=== PATIENT | male | born 1980 | race Caucasian/White ===

== ENCOUNTER 2016-03-07 15:18 | Emergency (ER) | payer OTHER ==
--- NOTE | 2016-03-07 15:51 | ED NURSING NOTES ---
Clinical Report - Nurses [facility] [address] [place] [address] 03/07/2016 15:20 Patient: MARIE ERICKSON JR TRIAGE Triage time 15:33. Acuity: LEVEL 3. Chief Complaint: (hypertension, sent by the In [facility] 2 days in the ED. Had CT, EKG, lab work done. Saw the dr just prior to now and metoprolol doubled to 200mg day, only took 100mg today.). Alert. No acute distress. SEPSIS SCREEN: Sepsis Screen: negative. Negative (no infection suspected/documented). LEILA COMA SCORE: [place] Coma Scale: 15- eyes open spontaneously (4); best verbal response- oriented x 4 (5); best motor response- obeys commands (6). --15:42 Poly Leslie R.N. 15:33 03/07/16. BP: 154/101. HR: 83. RR: 20. O2 saturation: 96% on room air. Temp: 98.2 F. Pain level now: 02/18. --15:42 Poly Leslie R.N. Weight: 88.9 kg stated. Height/Length: 71 inches Per Patient. BMI: 27.3. --15:40 Poly Leslie R.N. Medications Metoprolol Tartrate Oral 200mg, day. --15:37 Poly Leslie R.N. Omeprazole Oral 20 mg, daily. --15:37 Poly Leslie R.N. Candesartan Cilexetil-HCTZ Oral (Tablet 32-25 mg) 1 tablet, day. --15:38 Poly Leslie R.N. MetFORMIN HCl Oral 500 mg, occasionally . --15:38 Poly Leslie R.N. Ibuprofen Oral 600 mg, daily. --15:38 Poly Leslie R.N. Medication/allergy information source: the patient. --15:42 Poly Leslie R.N. Allergies Penicillin. --15:36 Poly Leslie R.N. History Arrived by private vehicle. Historian: patient. Primary physician ([facility]). Onset. (years.). He has had a cough and difficulty breathing. No fever or weakness. Denies muscle aches. 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 PAST MEDICAL HX: Immunizations: status is unknown. SOCIAL HX: Light tobacco smoker (cigarette)- less than 1/2 a pack per day. No alcohol use or drug use. No infectious disease exposure. FALL RISK ASSESSMENT: Fall risk assessment completed. No fall risk identified. NUTRITIONAL RISK ASSESSMENT: The nutritional risk assessment revealed no deficiencies. FUNCTIONAL ASSESSMENT: Functional assessment: no impairments noted. LEARNING NEEDS ASSESSMENT: The learning needs assessment revealed no barriers. SKIN INTEGRITY ASSESSMENT: Skin integrity risk assessment completed. No skin integrity risk identified. --15:42 Poly Leslie R.N. PROBLEMS: Reflux. Abdominal Muscle Strain. Abdominal Pain. Hypertension. Diabetes Mellitus. --15:39 Ploy Leslie R.N. ADDITIONAL SURGERIES: Cholecystectomy. Tonsillectomy. --15:39 Poly Leslie R.N. Interventions ID band on patient. To room. --15:42 Poly Leslie R.N. PHYSICAL ASSESSMENT Ambulatory to room. Patient gowned. GENERAL / NEURO / PSYCH: Alert. Oriented X 4. Appears in pain. HEENT: Mucous membranes are pink. RESPIRATORY: Respirations not labored. CVS: Capillary refill less than 2 seconds. GI / : Abdomen nontender. SKIN: Skin intact. Skin is warm and dry. Normal skin turgor. --15:42 Poly Leslie R.N. NURSING PROGRESS NOTES Patient gowned. Head of bed elevated. Two patient identifiers checked. Call light placed in reach. Side rails up x 2. Bed placed in lowest position. Brakes of bed on. Patient ready for evaluation. --15:43 Poly Leslie R.N. 15:43 03/07/16. BP: 147/96. HR: 87. RR: 20. O2 saturation: 100% on room air. --15:43 Poly Leslie R.N. DISPOSITION / DISCHARGE Condition at departure: improved. No learning barriers present. Discharge instructions provided and reviewed with the patient. Patient verbalized understanding. Written instructions provided in Sinhala. The patient was discharged home. He left the Emergency Department ambulatory and via private vehicle. Patient driving. Medication list reviewed and validated. --16:00 Poly Leslie R.N. 15:59 03/07/16. BP: 138/99. HR: 87. RR: 20. O2 saturation: 98%. Temp: deferred. Pain level now: 02/18. 15:43 03/07/16. BP: 147/96. HR: 87. RR: 20. O2 saturation: 100% on room air. 15:33 03/07/16. BP: 154/101. HR: 83. RR: 20. O2 saturation: 96% on room air. Temp: 98.2 F. Pain level now: 02/18. --16:00 Poly Leslie R.N. Locked/Released at 03/07/2016 16:01 by Poly Leslie R.N.
--- NOTE | 2016-03-07 15:51 | ED CLINICAL REPORT ---
Clinical Report - Physicians/Mid Levels [facility] [address] [place] [address] 03/07/2016 15:20 Patient: MARIE ERICKSON JR Time Seen: 15:38; upon arrival, initial patient contact, initial documentation, patient care assumed. Arrived- By private vehicle. Historian- patient. HISTORY OF PRESENT ILLNESS Chief Complaint: BLOOD PRESSURE ELEVATED. Checked by nurse at physician's office diastolic 120. This started about 1 weeks ago and is still present but is improving. No current or associated symptoms. Similar symptoms previously: None. Recent medical care: The patient was seen recently at another facility in the emergency department and office. ( went to another er x2 days ago, went to dr isidro for bp meds, been out of hctz for about x1 wk, bp elevated, was given some pill for it, but 30min later still elevated so sent here). REVIEW OF SYSTEMS No fever, sinus drainage, nasal congestion, difficulty breathing or chest pain. No abdominal pain, vomiting, diarrhea or headache. All systems otherwise negative, except as recorded above. PAST HISTORY See nurses notes. PROBLEMS: Reflux. Abdominal Muscle Strain. Abdominal Pain. Hypertension. Diabetes Mellitus. --15:39 Poly Leslie R.N. ADDITIONAL SURGERIES: Cholecystectomy. Tonsillectomy. --15:39 Poly Leslie R.N. SOCIAL HISTORY Light tobacco smoker. No alcohol use or drug use. No recent travel. Is a local resident. FAMILY HISTORY Negative. ADDITIONAL NOTES The nursing notes have been reviewed with agreement regarding the chief complaint, HPI, ROS, PMH and patient medications and allergies. PHYSICAL EXAM Vital Signs: 03/07/2016 15:43 BP: 147/96. HR: 87. RR: 20. O2 saturation: 100%. Have been reviewed as abnormal and appear to be correct. Hypertensive. Heart rate normal. Respiratory rate normal. Temperature normal. Oxygen saturation normal. Appearance: Alert. No acute distress. Eyes: Pupils equal, round and reactive to light. Eyes normal inspection. Neck: Normal inspection. Neck supple. CVS: Normal heart rate and rhythm. Heart sounds normal. Pulses normal. Respiratory: No respiratory distress. Breath sounds normal. Chest nontender. Abdomen: Moderately obese. Back: Normal inspection. Skin: Skin warm and dry. Normal skin color. No rash. Normal skin turgor. Extremities: Extremities exhibit normal ROM. No lower extremity edema. Neuro: Oriented X 3. No motor deficit. No sensory deficit. PROGRESS AND PROCEDURES Patient counseled in person regarding the patient's stable condition and diagnosis. 15:50. Differential Diagnosis: Other possible considerations: htn crisis, icb, sah, tumor, noncompliance. Above considerations are based on history and physical exam. Differential diagnosis was discussed with patient. Disposition: Discharged home in good and improved condition (15:50). Condition: good and stable. CLINICAL IMPRESSION Uncontrolled hypertension. INSTRUCTIONS (get blood pressure meds, and other medications filled and take as directed and discussed). Warnings: GENERAL WARNINGS: Return or contact your physician immediately if your condition worsens or changes unexpectedly, if not improving as expected, or if other problems arise. Specifically return if problem worsens. Follow-up: Follow up with your doctor in about five days even if well. Call for an appointment. Summary of care provided to patient. Screening today revealed the patient's blood pressure to be in the hypertensive range. The patient should follow up with a primary care provider for blood pressure management. Understanding of the discharge instructions verbalized by patient. (Electronically signed by Gemini Gamez A.R.N.P. 03/07/2016 16:23)
--- NOTE | 2016-03-07 15:51 | ED NURSING NOTES ---
Clinical Report - Nurses [facility] [address] [place] [address] 03/07/2016 15:20 Patient: MARIE ERICKSON JR TRIAGE Triage time 15:33. Acuity: LEVEL 3. Chief Complaint: (hypertension, sent by the In [facility] 2 days in the ED. Had CT, EKG, lab work done. Saw the dr just prior to now and metoprolol doubled to 200mg day, only took 100mg today.). Alert. No acute distress. SEPSIS SCREEN: Sepsis Screen: negative. Negative (no infection suspected/documented). LEILA COMA SCORE: [place] Coma Scale: 15- eyes open spontaneously (4); best verbal response- oriented x 4 (5); best motor response- obeys commands (6). --15:42 Poly Leslie R.N. 15:33 03/07/16. BP: 154/101. HR: 83. RR: 20. O2 saturation: 96% on room air. Temp: 98.2 F. Pain level now: 02/18. --15:42 Poly Leslie R.N. Weight: 88.9 kg stated. Height/Length: 71 inches Per Patient. BMI: 27.3. --15:40 Poly Leslie R.N. Medications Metoprolol Tartrate Oral 200mg, day. --15:37 Poly Leslie R.N. Omeprazole Oral 20 mg, daily. --15:37 Poly Leslie R.N. Candesartan Cilexetil-HCTZ Oral (Tablet 32-25 mg) 1 tablet, day. --15:38 Poly Leslie R.N. MetFORMIN HCl Oral 500 mg, occasionally . --15:38 Poly Leslie R.N. Ibuprofen Oral 600 mg, daily. --15:38 Poly Leslie R.N. Medication/allergy information source: the patient. --15:42 Poly Leslie R.N. Allergies Penicillin. --15:36 Poly Leslie R.N. History Arrived by private vehicle. Historian: patient. Primary physician ([facility]). Onset. (years.). He has had a cough and difficulty breathing. No fever or weakness. Denies muscle aches. 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 PAST MEDICAL HX: Immunizations: status is unknown. SOCIAL HX: Light tobacco smoker (cigarette)- less than 1/2 a pack per day. No alcohol use or drug use. No infectious disease exposure. FALL RISK ASSESSMENT: Fall risk assessment completed. No fall risk identified. NUTRITIONAL RISK ASSESSMENT: The nutritional risk assessment revealed no deficiencies. FUNCTIONAL ASSESSMENT: Functional assessment: no impairments noted. LEARNING NEEDS ASSESSMENT: The learning needs assessment revealed no barriers. SKIN INTEGRITY ASSESSMENT: Skin integrity risk assessment completed. No skin integrity risk identified. --15:42 Poly Leslie R.N. PROBLEMS: Reflux. Abdominal Muscle Strain. Abdominal Pain. Hypertension. Diabetes Mellitus. --15:39 Poly Leslie R.N. ADDITIONAL SURGERIES: Cholecystectomy. Tonsillectomy. --15:39 Poly Leslie R.N. Interventions ID band on patient. To room. --15:42 Poly Leslie R.N. PHYSICAL ASSESSMENT Ambulatory to room. Patient gowned. GENERAL / NEURO / PSYCH: Alert. Oriented X 4. Appears in pain. HEENT: Mucous membranes are pink. RESPIRATORY: Respirations not labored. CVS: Capillary refill less than 2 seconds. GI / : Abdomen nontender. SKIN: Skin intact. Skin is warm and dry. Normal skin turgor. --15:42 Poly Leslie R.N. NURSING PROGRESS NOTES Patient gowned. Head of bed elevated. Two patient identifiers checked. Call light placed in reach. Side rails up x 2. Bed placed in lowest position. Brakes of bed on. Patient ready for evaluation. --15:43 Poly Leslie R.N. 15:43 03/07/16. BP: 147/96. HR: 87. RR: 20. O2 saturation: 100% on room air. --15:43 Poly Leslie R.N. DISPOSITION / DISCHARGE Condition at departure: improved. No learning barriers present. Discharge instructions provided and reviewed with the patient. Patient verbalized understanding. Written instructions provided in Amharic. The patient was discharged home. He left the Emergency Department ambulatory and via private vehicle. Patient driving. Medication list reviewed and validated. --16:00 Poly Leslie R.N. 15:59 03/07/16. BP: 138/99. HR: 87. RR: 20. O2 saturation: 98%. Temp: deferred. Pain level now: 02/18. 15:43 03/07/16. BP: 147/96. HR: 87. RR: 20. O2 saturation: 100% on room air. 15:33 03/07/16. BP: 154/101. HR: 83. RR: 20. O2 saturation: 96% on room air. Temp: 98.2 F. Pain level now: 02/18. --16:00 Poly Leslie R.N. Locked/Released at 03/07/2016 16:01 by Poly Leslie R.N.
--- NOTE | 2016-03-07 16:24 | ED MED RECONCILIATION SUMMARY ---
Patient: DRE MARIE TRAN Medication Reconciliation Report [facility] VisitID: [id number] [address] [place] [address] 35y, M Registration Date/Time: 03/07/2016 Weight: 88.9 kg Height/Length: 71 in. BMI: 27.3 ALLERGIES: Penicillin The patient's Home Medications are listed below: THE FOLLOWING MEDICATIONS NEED TO BE RECONCILED: Candesartan Cilexetil-HCTZ Oral (32-25 mg) 1 tablet, day Ibuprofen Oral 600 mg, daily MetFORMIN HCl Oral 500 mg, occasionally Metoprolol Tartrate Oral 200mg, day Omeprazole Oral 20 mg, daily The source(s) of the original Home Medication information: patient The following Medications were given to the patient in the Emergency Department: None. The following Medications were prescribed to the patient: None.
--- NOTE | 2016-03-07 16:24 | ED MAR SUMMARY ---
..... Medication Administration Record [facility] [address], [place] [id number] Patient: MARIE ERICKSON Visit ID: [id number] 35y, M Weight: 88.9 kg Height/Length: 71 in BMI: 27.3 ALLERGIES: Penicillin
--- NOTE | 2016-03-07 16:24 | ED DISCHARGE INSTRUCTIONS ---
Patient: MARIE ERICKSON JR General Instructions [facility] VisitID: [id number] [place] [address] 35y, M Registration Date/Time: 03/07/2016 Uncontrolled hypertension. INSTRUCTIONS (get blood pressure meds, and other medications filled and take as directed and discussed). Warnings: GENERAL WARNINGS: Return or contact your physician immediately if your condition worsens or changes unexpectedly, if not improving as expected, or if other problems arise. Specifically return if problem worsens. Follow-up: Follow up with your doctor in about five days even if well. Call for an appointment. Summary of care provided to patient. Screening today revealed the patient's blood pressure to be in the hypertensive range. The patient should follow up with a primary care provider for blood pressure management. Understanding of the discharge instructions verbalized by patient. ADDITIONAL INFORMATION High Blood Pressure --Established High Blood Pressure (Hypertension) is a chronic disease. The cause is unknown in most cases. It can usually be controlled with lifestyle changes and/or medicines. Symptoms of high blood pressure may include headache, dizziness, visual changes, chest pain and shortness of breath. Sometimes it causes no symptoms at all. However, even if there are no symptoms, untreated high blood pressure increases the risk of heart attack, also known as acute myocardial infarction, or AMI, and stroke. It is a serious health risk and should not be ignored. A normal blood pressure is 120/80 or less. The first (top) number is the "systolic" pressure. The second (bottom) number is the "diastolic" pressure. Hypertension exists when either the top number is 140 or higher, OR the bottom number is 90 or higher on repeated measurements. Home Care: All patients with high blood pressure should do the following to lower their pressure. If you are on medicines, then these methods may reduce or eliminate your need for medicines in the future. Begin a weight loss program if you are overweight. Reduce your salt intake. Avoid high salt foods (olives, pickles, smoked meats, salted potato chips, etc.). Do not add salt to your food at the table. Use only small amounts of salt when cooking. Begin an exercise program. Discuss with your doctor what type of exercise program would be best for you. It doesn't have to be difficult. Even brisk walking for 20 minutes three times a week is a good form of exercise. Avoid medicines which contain heart stimulants. This includes many cold and sinus decongestant pills and sprays as well as diet pills. Check the warnings about hypertension on the label. Stimulants such as amphetamine or cocaine could be lethal for someone with hypertension. Never take these. Limit your caffeine intake or switch to caffeine-free products. Stop smoking. If you are a long-time smoker, this can be hard. Enroll in a stop-smoking program to improve your chance of success. Learning how to handle stress better is an important part of any program to lower blood pressure. Learn about relaxation methods such as meditation, yoga or biofeedback. If medicines were prescribed, take them exactly as directed. Missing doses may cause your blood pressure get out of control. Consider buying an automatic blood pressure machine (available at most pharmacies). Use this to monitor your blood pressure at home and report the results to your doctor. Follow Up: Regular visits to your own physician for blood pressure checks and medicine adjustment is an important part of your care. Make a follow-up appointment as directed by our staff. Get Prompt Medical Attention if any of the following occur: Chest pain or shortness of breath Severe headache Throbbing or rushing sound in the ears Nosebleed Sudden severe abdominal pain Extreme drowsiness, confusion or fainting Dizziness or vertigo (dizziness with spinning sensation) Weakness of an arm or leg or one side of the face Difficulty with speech or vision You have been given the following additional information: Hypertension, Established (Electronically signed by Gemini Gamez A.R.N.P. 03/07/2016 16:23)
--- NOTE | 2016-03-07 16:24 | ED MAR SUMMARY ---
..... Medication Administration Record [facility] [address] [place], [place] [id number] Patient: MARIE ERICKSON Visit ID: [id number] 35y, M Weight: 88.9 kg Height/Length: 71 in BMI: 27.3 ALLERGIES: Penicillin
--- NOTE | 2016-03-07 16:24 | ED MED RECONCILIATION SUMMARY ---
Patient: DRE MARIE TRAN Medication Reconciliation Report [facility] VisitID: [id number] [address] [place] [address] 35y, M Registration Date/Time: 03/07/2016 Weight: 88.9 kg Height/Length: 71 in. BMI: 27.3 ALLERGIES: Penicillin The patient's Home Medications are listed below: THE FOLLOWING MEDICATIONS NEED TO BE RECONCILED: Candesartan Cilexetil-HCTZ Oral (32-25 mg) 1 tablet, day Ibuprofen Oral 600 mg, daily MetFORMIN HCl Oral 500 mg, occasionally Metoprolol Tartrate Oral 200mg, day Omeprazole Oral 20 mg, daily The source(s) of the original Home Medication information: patient The following Medications were given to the patient in the Emergency Department: None. The following Medications were prescribed to the patient: None.
== END 2016-03-07 16:00 | disposition home or self-care (01) ==
LOC: ED SRH 15:18
DX: I10 Essential (primary) hypertension (principal); E11.9 Type 2 diabetes mellitus without complications; K21.9 Gastro-esophageal reflux disease without esophagitis; F17.210 Nicotine dependence, cigarettes, uncomplicated; Z79.84 Long term (current) use of oral hypoglycemic drugs; Z88.0 Allergy status to penicillin; Z79.899 Other long term (current) drug therapy

== ENCOUNTER 2016-08-22 16:05 | Emergency (ER) | payer OTHER ==
--- NOTE | 2016-08-22 16:41 | DIAGNOSTIC IMAGING REPORT ---
PROCEDURE: XR CHEST 1 VIEW INDICATION: CHEST PAIN TECHNIQUE: Single view chest. 1627 hours COMPARISON: None FINDINGS: Low lung volumes. Normal cardiomediastinal contour and central vessels. Mild bibasilar atelectatic changes, right greater than left. The upper lung zones are clear. No significant effusion or pneumothorax. Intact osseous structures. IMPRESSION: 1. Mild bibasilar atelectatic changes, likely secondary to low lung volumes.
--- NOTE | 2016-08-22 18:46 | ED NURSING NOTES ---
Clinical Report - Nurs[facility] [address] [place] [address] 08/22/2016 16:07 Patient: MARIE ERICKSON JR TRIAGE Triage time 16:Aug 22 2016. Acuity: LEVEL 3. Chief Complaint: CHEST PAIN. Alert. No acute distress. LEILA COMA SCORE: [place] Coma Scale: 15- eyes open spontaneously (4); best verbal response- oriented x 4 (5); best motor response- obeys commands (6). --16:16 Sarah Baig R.N. 16:09 08/22/16. BP: 151/98. HR: 85. RR: 20. O2 saturation: 94%. Temp: 98.7 F. Pain level now: 07/19. --16:16 Sarah Baig R.N. Weight: 129.2 kg stated. Height/Length: 71 inches Per Patient. BMI: 39.7. --16:14 Sarah Baig R.N. Medications Metoprolol Tartrate Oral 200mg, day. --16:10 Sarah Baig R.N. Losartan Potassium Oral. --16:10 Sarah Baig R.N. AmLODIPine Besylate Oral. --16:10 Sarah Baig R.N. INCRUSE INHALER. --16:15 Sarah Baig R.N. Allergies Steriods. --16:11 Sarah Baig R.N. Penicillins. --16:11 Sarah Baig R.N. History Arrived by private vehicle. Historian: patient. Onset. (several weeks). He has had difficulty breathing, nausea, vomiting and a cough. Reports experiencing sweating episodes. 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 PAST MEDICAL HX: Immunizations: status is unknown. SOCIAL HX: Current every day heavy tobacco smoker (cigarette)- less than 1 pack per day. History of drug use: marijuana. Recently used drugs days ago. No alcohol use. No infectious disease exposure. SELF HARM ASSESSMENT: A self harm assessment was performed. The patient answered "no" to the question "Do you have thoughts of harming or killing yourself?" and "Have you recently had thoughts about harming or killing others?". FALL RISK ASSESSMENT: Fall risk assessment completed. No fall risk identified. NUTRITIONAL RISK ASSESSMENT: The nutritional risk assessment revealed no deficiencies. FUNCTIONAL ASSESSMENT: Functional assessment: no impairments noted. LEARNING NEEDS ASSESSMENT: The learning needs assessment revealed no barriers. ABUSE ASSESSMENT: Abuse assessment: (HOMELESS). SKIN INTEGRITY ASSESSMENT: Skin integrity risk assessment completed. No skin integrity risk identified. --16:16 Sarah Baig R.N. PROBLEMS: Hypercholesterolemia. CARDIOVASCULAR DISEASE. LIVER DISEASE. Reflux. Abdominal Muscle Strain. Abdominal Pain. Hypertension. Diabetes Mellitus. --16:12 Sarah Baig R.N. COPD - Chronic Obstructive Pulmonary Disease. Asthma. --16:16 Sarah Baig R.N. ADDITIONAL SURGERIES: Cholecystectomy. Tonsillectomy. --16:12 Sarah Baig R.N. Interventions ID band on patient. To room. --16:16 Sarah Baig R.N. PHYSICAL ASSESSMENT Ambulatory to room. GENERAL / NEURO / PSYCH: Alert. Oriented X 4. Appears in no acute distress. RESPIRATORY: Respirations not labored. Decreased breath sounds in the bases bilaterally. CVS: Heart sounds within normal limits. Capillary refill less than 2 seconds. GI / : Abdomen soft and nontender. Abdominal tenderness diffusely. EXTREMITIES: No lower extremity edema. SKIN: Skin is warm and dry. --16:19 Sarah Baig R.N. NURSING PROGRESS NOTES 16:16 08/22/2016 Site #1 started via IV in the right hand with an 18g angiocath, with aseptic technique and good blood return; one attempt. Blood drawn: rainbow set. Labeled in the presence of the patient and sent to the lab. Saline lock flushed with 10 mL saline. --16:16 Sarah Baig R.N. block inspector, pulse oximeter and NIBP monitor placed on patient; cardiac cath lab radiology technologist- Lead II; monitor alarms on. Patient gowned. Head of bed elevated. Patient identifiers checked. Call light placed in reach. Side rails up x 1. Bed placed in lowest position. Brakes of bed on. --16:17 Sarah Baig R.N. 16:25 08/22/2016 Aspirin PO Tablets 324 mg given. Allergies verified and confirmed 5 rights. --16:25 Sarah Baig R.N. The patient is calm and resting quietly. Overall patient status- he states feels the same. --16:38 Sarah Baig R.N. 16:36 08/22/16. BP: 149/98. HR: 94. RR: 20. O2 saturation: 97%. Pain level now: 05/19. --16:38 Sarah Baig R.N. 16:12. EKG was performed by a tech and shown to the ED physician. --17:04 Liliana Barboza, ER Tech1 16:48. Checked patient name and birthdate urine collected; sample sent to lab. Specimen labeled in the presence of the patient. --17:03 Liliana Barboza ER Tech1 17:35 08/22/16. BP: 136/82. HR: 87. RR: 16. O2 saturation: 97% on nasal cannula at 2 liters/minute. --17:37 Poly Leslie R.N. The patient is calm and resting quietly. Overall patient status is the same- he states feels the same. --18:04 Sarah Baig R.N. 18:03 08/22/16. BP: 136/85. HR: 86. RR: 14. O2 saturation: 98%. Pain level now: 05/19. --18:04 Sarah Baig R.N. ( ice water provided to patient). --18:30 Sarah Baig R.N. DISPOSITION / DISCHARGE Departure time: 19:12 Aug 22 2016. Condition at departure: unchanged. No learning barriers present. Discharge instructions provided and reviewed with the patient. Reviewed referral to a casing cooker for followup. Patient verbalized understanding. Written instructions provided in Palestinian. The patient was discharged home. He left the Emergency Department ambulatory and via private vehicle. Patient driving. FALL RISK ASSESSMENT: Fall risk assessment completed. No fall risk identified. --19:12 Sarah Baig R.N. 19:11 08/22/16. BP: 139/85. HR: 90. RR: 19. O2 saturation: 97%. Pain level now: 05/19. --19:12 Sarah Baig R.N. Locked/Released at 08/22/2016 22:21 by Sarah Baig R.N.
--- NOTE | 2016-08-22 18:46 | ED CLINICAL REPORT ---
Clinical Report - Physicians/Mid Levels [facility] [address] [place] [address] 08/22/2016 16:07 Patient: MARIE ERICKSON JR Time Seen: 16:14. Arrived- By private vehicle. Historian- patient. HISTORY OF PRESENT ILLNESS Chief Complaint: CHEST PAIN. At its maximum, severity described as 7 / 10. When seen in the E.D., severity described as 4 / 10. Modifying factors- worsened by movement. It is described as sharp and it is described as located in the central chest area and radiating to the right shoulder. This started several weeks ago and is still present. It was gradual in onset and has been intermittent and waxing/waning. Onset during rest. The patient has had nausea and has experienced diaphoresis. No vomiting. He has had mild difficulty breathing (chronically - he attributes this to smoking). REVIEW OF SYSTEMS The patient has had chills. No fever, calf pain or pedal edema. He has had a mild cough productive of scant amounts of sputum. He has had intermittent palpitations (chronically). The palpitations have lasted only minutes. The palpitations feel like skipped beats. It has been similar to previous symptoms. he reports chronic upper and lower extremity "pins and needles" sensation. All systems otherwise negative, except as recorded above. 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 Problems: Syncope. Asthma. COPD - Chronic Obstructive Pulmonary Disease. Hypercholesterolemia. CARDIOVASCULAR DISEASE. LIVER DISEASE. Reflux. Abdominal Muscle Strain. Abdominal Pain. Hypertension. Diabetes Mellitus. Additional Surgeries: Cholecystectomy. Tonsillectomy. Medications: INCRUSE INHALER. AmLODIPine Besylate Oral. Losartan Potassium Oral. Metoprolol Tartrate Oral 200mg, day. Allergies: Penicillins. Steriods. SOCIAL HISTORY Current every day light tobacco smoker- less than 1/2 a pack per day. History of occasional drug use: marijuana. No alcohol use. Residence: [place] he is homeless. FAMILY HISTORY Premature onset heart disease in first-degree relative (mother and father); stroke in first-degree relative (mother). ADDITIONAL NOTES The nursing notes have been reviewed. PHYSICAL EXAM Vital Signs: 08/22/2016 16:09 BP: 151/98. HR: 85. RR: 20. O2 saturation: 94%. Temp: 98.7 F. Pain level now: 6/10. Have been reviewed. Appearance: Alert. Eyes: Pupils equal, round and reactive to light. ENT: Pharynx normal. Neck: Normal inspection. Neck supple. CVS: Normal heart rate and rhythm. Heart sounds normal. Respiratory: No respiratory distress. Breath sounds normal. Abdomen: Soft and nontender. Bowel sounds normal. No organomegaly. No mass. Obese. Back: Normal external inspection. No CVA tenderness. Skin: Skin warm and dry. Normal skin color. Normal skin turgor. Extremities: Extremities exhibit normal ROM. No calf tenderness. No lower extremity edema. LABS, X-RAYS, AND EKG EKG: Normal EKG. Normal sinus rhythm. Rate: 90. Prior EKG unavailable. The study has been independently viewed by me. Chest X-ray: (IMPRESSION: 1. Mild bibasilar atelectatic changes, likely secondary to low lung volumes.). The X-rays were interpreted by the radiologist and contemporaneously by me. Laboratory Tests: UA-Culture if indicated: (YOLANDA: 08/22/2016 16:49) ( MsgRcvd 08/22/2016 17:25) Final results Test Result Flag Units (Reference) URINE COLOR YELLOW URINE APPEARANCE CLEAR URINE GLUCOSE 3+ (NEGATIVE) URINE BILIRUBIN NEGATIVE (NEGATIVE) URINE KETONE NEGATIVE (NEGATIVE) URINE SPECIFIC GRAVITY 1.025 (1.010-1.030) URINE PH 6.0 (5.0-8.0) URINE PROTEIN NEGATIVE (NEGATIVE) URINE UROBILINOGEN 0.2 EU/dL (0.2-1.0) URINE NITRITE NEGATIVE (NEGATIVE) URINE BLOOD NEGATIVE (NEGATIVE) URINE LEUK ESTERASE NEGATIVE (NEGATIVE) URINE RBC NONE SEEN rbc/hpf (0-1) URINE WBC RARE wbc/hpf (0-1) URINE EPITHELIAL CELLS RARE EPI/hpf (0-5) URINE BACTERIA NONE SEEN (NONE SEEN) URINE COMMENT CULT NOT INDICATED URINE CULTURES ARE SET-UP BASED ON THE FOLLOWING CRITERIA:POSITIVE NITRITEPOSITIVE LEUKOCYTE ESTERASEGREATER THAN 10 WHITE BLOOD CELLSMODERATE (2+) OR GREATER BACTERIA CBC w Diff: (YOLANDA: 08/22/2016 16:15) ( [facility] 08/22/2016 16:27) Final results Test Result Flag Units (Reference) WHITE BLOOD COUNT 9.6 K/uL (4.5-11.5) RED BLOOD COUNT 5.32 M/uL (4.50-5.90) HEMOGLOBIN 15.3 gm/dL (13.5-17.5) HEMATOCRIT 44.4 % (41.0-53.0) MEAN CELL VOLUME 83 fL (80-100) MEAN CORPUSCULAR HGB 29 pg (26-34) MEAN CORPUSCULAR HGB CONC 34 g/dL (31-37) RED CELL DISTRIBUTION WIDTH 13.2 % (11.6-14.8) PLATELET COUNT 219 K/uL (150-400) NEUTROPHIL % 68.7 % (50-75) LYMPH % 24.2 L % (25-40) MONO % 5.1 % (3-14) EOSINOPHIL % 1.6 % (0-4) BASOPHIL % 0.4 % (0-2) PT with INR: (YOLANDA: 08/22/2016 16:15) ( [facility] 08/22/2016 16:40) Final results Test Result Flag Units (Reference) INR 0.9 (0.8-1.2) Low Intensity Therapy: INR 1.5-2.0 PT range 18.5-23.1Mod.Intensity Therapy: INR 2.0-3.0 PT range 23.1-31.5High Intensity Therapy: INR 2.5-3.5 PT range 27.4-35.5High Intensity Therapy 2: INR 3.0-4.0 PT range 31.5-39.3 APTT 30 SECONDS (24-34) D-DIMER QUANTITATIVE < 0.27 L ug/mLFEU (0.27-0.52) The primary value of this quantitative assay relates toits negative predictive value (i.e. exclusion) of pulmonaryembolism/deep vein thrombosis/DIC.Elevated levels of d-dimer may also occur with:, age, cancer, inflammation, liver disease,post-op, infection, hematoma, coronary disease, peripheralarteriopathy, bleeding disorders and thrombolytic treatment.Results should be correlated with other clinical andradiological data.Testing Methodology: Latex Immunoassay BNP: (YOLANDA: 08/22/2016 16:15) ( MsgRcvd 08/22/2016 16:55) Final results Test Result Flag Units (Reference) B-TYPE NATRIURETIC PEPTIDE 9.3 pg/ml (5-100) CMP: (YOLANDA: 08/22/2016 16:15) ( MsgRcvd 08/22/2016 16:49) Final results Test Result Flag Units (Reference) GLUCOSE 306 H mg/dL (70-110) BUN 10 mg/dL (7-18) CREATININE 0.9 mg/dL (0.6-1.3) Estimated GFR >60 mL/min Estimated GFR- >60 mL/min Note: Persistent reduction over 3 months in eGFR<60 mL/min/1.73 m2 defines CKD. Patients with eGFR values>=60 mL/min/1.73 m2 may also have CKD if evidence ofpersistent proteinuria. Additional information may be foundat www.[email or web address].org. SODIUM 139 mmol/L (136-145) POTASSIUM 3.7 mmol/L (3.5-5.1) CHLORIDE 101 mmol/L (98-107) CARBON DIOXIDE 28 mmol/L (21-32) CALCIUM 9.1 mg/dL (8.5-10.1) TOTAL PROTEIN 7.7 g/dL (6.4-8.2) ALBUMIN 3.9 g/dL (3.3-5.0) BILIRUBIN, TOTAL 0.5 mg/dL (0.0-1.0) ALKALINE PHOSPHATASE 80 U/L (46-116) AST (SGOT) 43 H U/L (15-37) ALT (SGPT) 99 H U/L (12-78) LIPASE 142 U/L (73-393) AMYLASE 19 L U/L (25-115) CPK 204 U/L (24-260) TROPONIN I <0.05 L ng/mL (0.00-1.5) TROPONIN REFERENCE RANGE:<0.1 NEGATIVE0.1-1.5 INDETERMINANT>1.5 POSITIVE . PROGRESS AND PROCEDURES Course of Care: 18:07 08/22/16. I had an extended discussion with Dr. Odell the tanner rotary drum continuous process on-call for the patient's tanner rotary drum continuous process. She reviewed the results of the patient's recent workup from November 2015. She says that he had a normal echocardiogram. He underwent a sleep study and has been diagnosed with obstructive sleep apnea. She did say that his stress test was nondiagnostic however. She does feel that the patient can be discharged safely but that he should go and have an outpatient nuclear stress test performed. Patient/family counseled. Old medical records reviewed. Disposition: Discharged. Condition: stable. CLINICAL IMPRESSION Atypical chest pain INSTRUCTIONS No strenuous activity. Rest. Avoid stimulants (such as cigarettes, coffee, cold medicines, sinus medicines, street drugs). (we have arranged an appointment for you to have a nuclear stress test performed on Thursday. This is to be done at 9:45 AM on 25 August 2016. This is to be done at [place] at the [facility] Their contact information is as follows: [facility] [address] [place] [phone] Get Directions; [facility] [address] [place] [address]). Warnings: Further evaluation is necessary in order to conduct further tests. It is very important to follow up with a physician. GENERAL WARNINGS: Return or contact your physician immediately if your condition worsens or changes unexpectedly, if not improving as expected, or if other problems arise. Your Current Medications: CONTINUE TAKING THE FOLLOWING MEDICATIONS: AmLODIPine Besylate Oral. INCRUSE INHALER*. Losartan Potassium Oral. Metoprolol Tartrate Oral : 200mg day. Follow-up: Follow up with a tanner rotary drum continuous process Dr. Brown in seven days. Call for the next available appointment. Understanding of the discharge instructions verbalized by patient. Follow-up with: [facility], , , [address], , [place], [id number] Follow up in seven days. Call for an appointment. (Electronically signed by Fritz Kiran MD 08/23/2016 9:02)
--- NOTE | 2016-08-22 18:46 | ED CLINICAL REPORT ---
Clinical Report - Physicians/Mid Levels [facility] [address] [place] [address] 08/22/2016 16:07 Patient: MARIE ERICKSON JR Time Seen: 16:14. Arrived- By private vehicle. Historian- patient. HISTORY OF PRESENT ILLNESS Chief Complaint: CHEST PAIN. At its maximum, severity described as 7 / 10. When seen in the E.D., severity described as 4 / 10. Modifying factors- worsened by movement. It is described as sharp and it is described as located in the central chest area and radiating to the right shoulder. This started several weeks ago and is still present. It was gradual in onset and has been intermittent and waxing/waning. Onset during rest. The patient has had nausea and has experienced diaphoresis. No vomiting. He has had mild difficulty breathing (chronically - he attributes this to smoking). REVIEW OF SYSTEMS The patient has had chills. No fever, calf pain or pedal edema. He has had a mild cough productive of scant amounts of sputum. He has had intermittent palpitations (chronically). The palpitations have lasted only minutes. The palpitations feel like skipped beats. It has been similar to previous symptoms. he reports chronic upper and lower extremity "pins and needles" sensation. All systems otherwise negative, except as recorded above. 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 Problems: Syncope. Asthma. COPD - Chronic Obstructive Pulmonary Disease. Hypercholesterolemia. CARDIOVASCULAR DISEASE. LIVER DISEASE. Reflux. Abdominal Muscle Strain. Abdominal Pain. Hypertension. Diabetes Mellitus. Additional Surgeries: Cholecystectomy. Tonsillectomy. Medications: INCRUSE INHALER. AmLODIPine Besylate Oral. Losartan Potassium Oral. Metoprolol Tartrate Oral 200mg, day. Allergies: Penicillins. Steriods. SOCIAL HISTORY Current every day light tobacco smoker- less than 1/2 a pack per day. History of occasional drug use: marijuana. No alcohol use. Residence: [place] he is homeless. FAMILY HISTORY Premature onset heart disease in first-degree relative (mother and father); stroke in first-degree relative (mother). ADDITIONAL NOTES The nursing notes have been reviewed. PHYSICAL EXAM Vital Signs: 08/22/2016 16:09 BP: 151/98. HR: 85. RR: 20. O2 saturation: 94%. Temp: 98.7 F. Pain level now: 6/10. Have been reviewed. Appearance: Alert. Eyes: Pupils equal, round and reactive to light. ENT: Pharynx normal. Neck: Normal inspection. Neck supple. CVS: Normal heart rate and rhythm. Heart sounds normal. Respiratory: No respiratory distress. Breath sounds normal. Abdomen: Soft and nontender. Bowel sounds normal. No organomegaly. No mass. Obese. Back: Normal external inspection. No CVA tenderness. Skin: Skin warm and dry. Normal skin color. Normal skin turgor. Extremities: Extremities exhibit normal ROM. No calf tenderness. No lower extremity edema. LABS, X-RAYS, AND EKG EKG: Normal EKG. Normal sinus rhythm. Rate: 90. Prior EKG unavailable. The study has been independently viewed by me. Chest X-ray: (IMPRESSION: 1. Mild bibasilar atelectatic changes, likely secondary to low lung volumes.). The X-rays were interpreted by the radiologist and contemporaneously by me. Laboratory Tests: UA-Culture if indicated: (YOLANDA: 08/22/2016 16:49) ( MsgRcvd 08/22/2016 17:25) Final results Test Result Flag Units (Reference) URINE COLOR YELLOW URINE APPEARANCE CLEAR URINE GLUCOSE 3+ (NEGATIVE) URINE BILIRUBIN NEGATIVE (NEGATIVE) URINE KETONE NEGATIVE (NEGATIVE) URINE SPECIFIC GRAVITY 1.025 (1.010-1.030) URINE PH 6.0 (5.0-8.0) URINE PROTEIN NEGATIVE (NEGATIVE) URINE UROBILINOGEN 0.2 EU/dL (0.2-1.0) URINE NITRITE NEGATIVE (NEGATIVE) URINE BLOOD NEGATIVE (NEGATIVE) URINE LEUK ESTERASE NEGATIVE (NEGATIVE) URINE RBC NONE SEEN rbc/hpf (0-1) URINE WBC RARE wbc/hpf (0-1) URINE EPITHELIAL CELLS RARE EPI/hpf (0-5) URINE BACTERIA NONE SEEN (NONE SEEN) URINE COMMENT CULT NOT INDICATED URINE CULTURES ARE SET-UP BASED ON THE FOLLOWING CRITERIA:POSITIVE NITRITEPOSITIVE LEUKOCYTE ESTERASEGREATER THAN 10 WHITE BLOOD CELLSMODERATE (2+) OR GREATER BACTERIA CBC w Diff: (YOLANDA: 08/22/2016 16:15) ( [facility] [place] [facility] 08/22/[place] 16:27) Final results Test Result Flag Units (Reference) WHITE BLOOD COUNT 9.6 K/uL (4.5-11.5) RED BLOOD COUNT 5.32 M/uL (4.50-5.90) HEMOGLOBIN 15.3 gm/dL (13.5-17.5) HEMATOCRIT 44.4 % (41.0-53.0) MEAN CELL VOLUME 83 fL (80-100) MEAN CORPUSCULAR HGB 29 pg (26-34) MEAN CORPUSCULAR HGB CONC 34 g/dL (31-37) RED CELL DISTRIBUTION WIDTH 13.2 % (11.6-14.8) PLATELET COUNT 219 K/uL (150-400) NEUTROPHIL % 68.7 % (50-75) LYMPH % 24.2 L % (25-40) MONO % 5.1 % (3-14) EOSINOPHIL % 1.6 % (0-4) BASOPHIL % 0.4 % (0-2) PT with INR: (YOLANDA: 08/22/2016 16:15) ( [facility] [place] 08/22/2016 16:40) Final results Test Result Flag Units (Reference) INR 0.9 (0.8-1.2) Low Intensity Therapy: INR 1.5-2.0 PT range 18.5-23.1Mod.Intensity Therapy: INR 2.0-3.0 PT range 23.1-31.5High Intensity Therapy: INR 2.5-3.5 PT range 27.4-35.5High Intensity Therapy 2: INR 3.0-4.0 PT range 31.5-39.3 APTT 30 SECONDS (24-34) D-DIMER QUANTITATIVE < 0.27 L ug/mLFEU (0.27-0.52) The primary value of this quantitative assay relates toits negative predictive value (i.e. exclusion) of pulmonaryembolism/deep vein thrombosis/DIC.Elevated levels of d-dimer may also occur with:, age, cancer, inflammation, liver disease,post-op, infection, hematoma, coronary disease, peripheralarteriopathy, bleeding disorders and thrombolytic treatment.Results should be correlated with other clinical andradiological data.Testing Methodology: Latex Immunoassay BNP: (YOLANDA: 08/22/2016 16:15) ( MsgRcvd 08/22/2016 16:55) Final results Test Result Flag Units (Reference) B-TYPE NATRIURETIC PEPTIDE 9.3 pg/ml (5-100) CMP: (YOLANDA: 08/22/2016 16:15) ( MsgRcvd 08/22/2016 16:49) Final results Test Result Flag Units (Reference) GLUCOSE 306 H mg/dL (70-110) BUN 10 mg/dL (7-18) CREATININE 0.9 mg/dL (0.6-1.3) Estimated GFR >60 mL/min Estimated GFR- >60 mL/min Note: Persistent reduction over 3 months in eGFR<60 mL/min/1.73 m2 defines CKD. Patients with eGFR values>=60 mL/min/1.73 m2 may also have CKD if evidence ofpersistent proteinuria. Additional information may be foundat [email or web address].org. SODIUM 139 mmol/L (136-145) POTASSIUM 3.7 mmol/L (3.5-5.1) CHLORIDE 101 mmol/L (98-107) CARBON DIOXIDE 28 mmol/L (21-32) CALCIUM 9.1 mg/dL (8.5-10.1) TOTAL PROTEIN 7.7 g/dL (6.4-8.2) ALBUMIN 3.9 g/dL (3.3-5.0) BILIRUBIN, TOTAL 0.5 mg/dL (0.0-1.0) ALKALINE PHOSPHATASE 80 U/L (46-116) AST (SGOT) 43 H U/L (15-37) ALT (SGPT) 99 H U/L (12-78) LIPASE 142 U/L (73-393) AMYLASE 19 L U/L (25-115) CPK 204 U/L (24-260) TROPONIN I <0.05 L ng/mL (0.00-1.5) TROPONIN REFERENCE RANGE:<0.1 NEGATIVE0.1-1.5 INDETERMINANT>1.5 POSITIVE . PROGRESS AND PROCEDURES Course of Care: 18:07 08/22/16. I had an extended discussion with Dr. Odell the recruiter manager on-call for the patient's recruiter manager. She reviewed the results of the patient's recent workup from November 2015. She says that he had a normal echocardiogram. He underwent a sleep study and has been diagnosed with obstructive sleep apnea. She did say that his stress test was nondiagnostic however. She does feel that the patient can be discharged safely but that he should go and have an outpatient nuclear stress test performed. Patient/family counseled. Old medical records reviewed. Disposition: Discharged. Condition: stable. CLINICAL IMPRESSION Atypical chest pain INSTRUCTIONS No strenuous activity. Rest. Avoid stimulants (such as cigarettes, coffee, cold medicines, sinus medicines, street drugs). (we have arranged an appointment for you to have a nuclear stress test performed on Thursday. This is to be done at 9:45 AM on 25 August 2016. This is to be done at [place] at the [facility] Their contact information is as follows: [facility] [address] [place] [phone] Get Directions; [facility] [address] [place] [address]). Warnings: Further evaluation is necessary in order to conduct further tests. It is very important to follow up with a physician. GENERAL WARNINGS: Return or contact your physician immediately if your condition worsens or changes unexpectedly, if not improving as expected, or if other problems arise. Your Current Medications: CONTINUE TAKING THE FOLLOWING MEDICATIONS: AmLODIPine Besylate Oral. INCRUSE INHALER*. Losartan Potassium Oral. Metoprolol Tartrate Oral : 200mg day. Follow-up: Follow up with a recruiter manager Dr. Brown in seven days. Call for the next available appointment. Understanding of the discharge instructions verbalized by patient. Follow-up with: [facility], , , [address], , [place], [phone] Follow up in seven days. Call for an appointment. (Electronically signed by Fritz Kiran MD 08/23/2016 9:02)
--- NOTE | 2016-08-22 18:46 | ED ORDER SUMMARY ---
..... Patient: MARIE ERICKSON JR OrderSheet Formerly [facility] VisitID: [id number] [place] [address] 36y, M Registration Date/Time: 08/22/2016 ORDER SHEET Weight: 129.2 kg (stated) Allergies: Steriods, Penicillins GENERAL ORDERS: Chest 1V Urgent (16:15 08/22/2016 eDuce NDIAYE) (Ack 16:19 Baljeet) (16:25 KKnebel R.N.) Product Merchandiser (Continuous) (16:15 08/22/2016 Deuce NDIAYE) (16:19 JSimbeck R.N.) (Ack 16:20 Baljeet) CBC w Diff Urgent (16:15 08/22/2016 Deuce NDIAYE) (Ack 16:18 Baljeet) (16:19 JSimbeck R.N.) CMP Urgent (16:15 08/22/2016 Deuce NDIAYE) (Ack 16:18 Baljeet) (16:19 JSimbeck R.N.) UA-Culture if indicated Urgent (16:15 08/22/2016 Deuce NDIAYE) (Ack 16:18 Baljeet) (17:03 AMcQuoid ER Tech1) PT with INR Urgent (16:15 08/22/2016 Deuce NDIAYE) (Ack 16:18 Baljeet) (16:20 JSimbeck R.N.) PTT Urgent (16:08/22/2016 Deuce NDIAYE) (Ack 16:18 Baljeet) (16:20 JSimbeck R.N.) Amylase Urgent (16:15 08/22/2016 Deuce NDIAYE) (Ack 16:18 Baljeet) (16:20 JSimbeck R.N.) Lipase Urgent (16:08/22/2016 Deuce NDIAYE) (Ack 16:18 Baljeet) (16:20 BECKYimbeck R.N.) D-Dimer Urgent (16:08/22/2016 Deuce NDIAYE) (Ack 16:19 Baljeet) (16:20 JSimbeck R.N.) CPK Urgent (16:08/22/2016 Deuce NDIAYE) (Ack 16:19 Baljeet) (16:20 aRdha R.N.) Troponin-I Urgent (16:15 08/22/2016 Deuce NDIAYE) (Ack 16:19 Baljeet) (16:20 Radha R.N.) BNP Urgent (16:08/22/2016 Deuce NDIAYE) (Ack 16:19 Baljeet) (16:20 Radha R.N.) Oxygen (2 L/min) (NC) (16:15 08/22/2016 Deuce NDIAYE) (Ack 16:20 Baljeet) (16:20 Elbert R.N.) Pulse oximeter (16:08/22/2016 Deuce NDIAYE) (16:19 Radha R.N.) (Ack 16:20 Baljeet) EKG - ER Stat (16:08/22/2016 Deuce NDIAYE) (16:19 Radha R.N.) (Ack 16:20 Baljeet) MEDICATION ORDERS: Aspirin PO 325 mg (NOW) (16:08/22/2016 Deuce NDIAYE) (16:25 Elbert R.N.) IV FLUIDS: IV Saline Lock (16:08/22/2016 Deuce NDIAYE) (16:25 Elbert R.N.) ORDER SHEET NOTES: [Electronically signed by Sarah Baig R.N. (22:21 08/22/2016)] [Electronically signed by Fritz Kiran MD (09:02 08/23/2016)] [Electronically locked/signed by Sarah Baig R.N. (22:21 08/22/2016)]
--- NOTE | 2016-08-22 18:46 | ED ORDER SUMMARY ---
..... Patient: MARIE ERICKSON JR OrderSheet [facility] VisitID: [id number] [place] [address] 36y, M Registration Date/Time: 08/22/2016 ORDER SHEET Weight: 129.2 kg (stated) Allergies: Steriods, Penicillins GENERAL ORDERS: Chest 1V Urgent (16:15 08/22/2016 Deuce NDIAYE) (Ack 16:19 Baljeet) (16:25 KKnebel R.N.) Tutoring Assistant (Continuous) (16:15 08/22/2016 Deuce NDIAYE) (16:19 JSimbeck R.N.) (Ack 16:20 Baljeet) CBC w Diff Urgent (16:15 08/22/2016 Deuce NDIAYE) (Ack 16:18 Baljeet) (16:19 JSimbeck R.N.) CMP Urgent (16:15 08/22/2016 Deuce NDIAYE) (Ack 16:18 Baljeet) (16:19 JSimbeck R.N.) UA-Culture if indicated Urgent (16:15 08/22/2016 Deuce NDIAYE) (Ack 16:18 Baljeet) (17:03 AMcQuoid ER Tech1) PT with INR Urgent (16:15 08/22/2016 Deuce NDIAYE) (Ack 16:18 Baljeet) (16:20 JSimbeck R.N.) PTT Urgent (16:08/22/2016 Deuce NDIAYE) (Ack 16:18 Baljeet) (16:20 JSimbeck R.N.) Amylase Urgent (16:15 08/22/2016 Deuce NDIAYE) (Ack 16:18 Baljeet) (16:20 JSimbeck R.N.) Lipase Urgent (16:08/22/2016 Deuce NDIAYE) (Ack 16:18 Baljeet) (16:20 BECKYimbeck R.N.) D-Dimer Urgent (16:08/22/2016 Deuce NDIAYE) (Ack 16:19 Baljeet) (16:20 JSimbeck R.N.) CPK Urgent (16:08/22/2016 Deuce NDIAYE) (Ack 16:19 Baljeet) (16:20 Radha R.N.) Troponin-I Urgent (16:15 08/22/2016 Deuce NDIAYE) (Ack 16:19 Baljeet) (16:20 Radha R.N.) BNP Urgent (16:08/22/2016 Deuce DNIAYE) (Ack 16:19 Baljeet) (16:20 Radha R.N.) Oxygen (2 L/min) (NC) (16:15 08/22/2016 Deuce NDIAYE) (Ack 16:20 Baljeet) (16:20 Elbert R.N.) Pulse oximeter (16:08/22/2016 Deuce NDIAYE) (16:19 Radha R.N.) (Ack 16:20 Baljeet) EKG - ER Stat (16:08/22/2016 Deuce NDIAYE) (16:19 Radha R.N.) (Ack 16:20 Baljeet) MEDICATION ORDERS: Aspirin PO 325 mg (NOW) (16:08/22/2016 Deuce NDIAYE) (16:25 Elbert R.N.) IV FLUIDS: IV Saline Lock (16:08/22/2016 Deuce NDIAYE) (16:25 Elbert R.N.) ORDER SHEET NOTES: [Electronically signed by Sarah Baig R.N. (22:21 08/22/2016)] [Electronically signed by Fritz Kiran MD (09:02 08/23/2016)] [Electronically locked/signed by Sarah Baig R.N. (22:21 08/22/2016)]
--- NOTE | 2016-08-22 18:46 | ED NURSING NOTES ---
Clinical Report - Nurses [facility] [address] [place] [address] 08/22/2016 16:07 Patient: MARIE ERICKSON JR TRIAGE Triage time 16:Aug 22 2016. Acuity: LEVEL 3. Chief Complaint: CHEST PAIN. Alert. No acute distress. LEILA COMA SCORE: [place] Coma Scale: 15- eyes open spontaneously (4); best verbal response- oriented x 4 (5); best motor response- obeys commands (6). --16:16 Sarah Baig R.N. 16:09 08/22/16. BP: 151/98. HR: 85. RR: 20. O2 saturation: 94%. Temp: 98.7 F. Pain level now: 07/19. --16:16 Sarah Baig R.N. Weight: 129.2 kg stated. Height/Length: 71 inches Per Patient. BMI: 39.7. --16:14 Sarah Baig R.N. Medications Metoprolol Tartrate Oral 200mg, day. --16:10 Sarah Baig R.N. Losartan Potassium Oral. --16:10 Sarah Baig R.N. AmLODIPine Besylate Oral. --16:10 Sarah Baig R.N. INCRUSE INHALER. --16:15 Sarah Baig R.N. Allergies Steriods. --16:11 Sarah Baig R.N. Penicillins. --16:11 Sarah Baig R.N. History Arrived by private vehicle. Historian: patient. Onset. (several weeks). He has had difficulty breathing, nausea, vomiting and a cough. Reports experiencing sweating episodes. Treatment PROPELLER ENGINEER: None. PAST MEDICAL HX: Immunizations: status is unknown. SOCIAL HX: Current every day heavy tobacco smoker (cigarette)- less than 1 pack per day. History of drug use: marijuana. Recently used drugs days ago. No alcohol use. No infectious disease exposure. SELF HARM ASSESSMENT: A self harm assessment was performed. The patient answered "no" to the question "Do you have thoughts of harming or killing yourself?" and "Have you recently had thoughts about harming or killing others?". FALL RISK ASSESSMENT: Fall risk assessment completed. No fall risk identified. NUTRITIONAL RISK ASSESSMENT: The nutritional risk assessment revealed no deficiencies. FUNCTIONAL ASSESSMENT: Functional assessment: no impairments noted. LEARNING NEEDS ASSESSMENT: The learning needs assessment revealed no barriers. ABUSE ASSESSMENT: Abuse assessment: (HOMELESS). SKIN INTEGRITY ASSESSMENT: Skin integrity risk assessment completed. No skin integrity risk identified. --16:16 Sarah Baig R.N. PROBLEMS: Hypercholesterolemia. CARDIOVASCULAR DISEASE. LIVER DISEASE. Reflux. Abdominal Muscle Strain. Abdominal Pain. Hypertension. Diabetes Mellitus. --16:12 Sarah Baig R.N. COPD - Chronic Obstructive Pulmonary Disease. Asthma. --16:16 Sarah Baig R.N. ADDITIONAL SURGERIES: Cholecystectomy. Tonsillectomy. --16:12 Sarah Baig R.N. Interventions ID band on patient. To room. --16:16 Sarah Baig R.N. PHYSICAL ASSESSMENT Ambulatory to room. GENERAL / NEURO / PSYCH: Alert. Oriented X 4. Appears in no acute distress. RESPIRATORY: Respirations not labored. Decreased breath sounds in the bases bilaterally. CVS: Heart sounds within normal limits. Capillary refill less than 2 seconds. GI / : Abdomen soft and nontender. Abdominal tenderness diffusely. EXTREMITIES: No lower extremity edema. SKIN: Skin is warm and dry. --16:19 Sarah Baig R.N. NURSING PROGRESS NOTES 16:16 08/22/2016 Site #1 started via IV in the right hand with an 18g angiocath, with aseptic technique and good blood return; one attempt. Blood drawn: rainbow set. Labeled in the presence of the patient and sent to the lab. Saline lock flushed with 10 mL saline. --16:16 Sarah Baig R.N. cardiac monitor technician, pulse oximeter and NIBP monitor placed on patient; cardiac monitor technician- Lead II; monitor alarms on. Patient gowned. Head of bed elevated. Patient identifiers checked. Call light placed in reach. Side rails up x 1. Bed placed in lowest position. Brakes of bed on. --16:17 Sarah Baig R.N. 16:25 08/22/2016 Aspirin PO Tablets 324 mg given. Allergies verified and confirmed 5 rights. --16:25 Sarah Baig R.N. The patient is calm and resting quietly. Overall patient status- he states feels the same. --16:38 Sarah Baig R.N. 16:36 08/22/16. BP: 149/98. HR: 94. RR: 20. O2 saturation: 97%. Pain level now: 05/19. --16:38 Sarah Baig R.N. 16:12. EKG was performed by a tech and shown to the ED physician. --17:04 Liliana Barboza, ER Tech1 16:48. Checked patient name and birthdate urine collected; sample sent to lab. Specimen labeled in the presence of the patient. --17:03 Liliana Barboza ER Tech1 17:35 08/22/16. BP: 136/82. HR: 87. RR: 16. O2 saturation: 97% on nasal cannula at 2 liters/minute. --17:37 Poly Leslie R.N. The patient is calm and resting quietly. Overall patient status is the same- he states feels the same. --18:04 Sarah Baig R.N. 18:03 08/22/16. BP: 136/85. HR: 86. RR: 14. O2 saturation: 98%. Pain level now: 05/19. --18:04 Sarah Baig R.N. ( ice water provided to patient). --18:30 Sarah Baig R.N. DISPOSITION / DISCHARGE Departure time: 19:12 Aug 22 2016. Condition at departure: unchanged. No learning barriers present. Discharge instructions provided and reviewed with the patient. Reviewed referral to a bicycle ii assembler for followup. Patient verbalized understanding. Written instructions provided in Peruvian. The patient was discharged home. He left the Emergency Department ambulatory and via private vehicle. Patient driving. FALL RISK ASSESSMENT: Fall risk assessment completed. No fall risk identified. --19:12 Sarah Baig R.N. 19:11 08/22/16. BP: 139/85. HR: 90. RR: 19. O2 saturation: 97%. Pain level now: 05/19. --19:12 Sarah Baig R.N. Locked/Released at 08/22/2016 22:21 by Sarah Baig R.N.
--- NOTE | 2016-08-23 09:02 | ED DISCHARGE INSTRUCTIONS ---
Patient: MARIE ERICKSON JR General Instructions [facility] VisitID: [id number] [address], [place] [address] 36y, M Registration Date/Time: 08/22/2016 Atypical chest pain INSTRUCTIONS No strenuous activity. Rest. Avoid stimulants (such as cigarettes, coffee, cold medicines, sinus medicines, street drugs). (we have arranged an appointment for you to have a nuclear stress test performed on Thursday. This is to be done at 9:45 AM on 25 August 2016. This is to be done at [place] at the [facility] Their contact information is as follows: [facility] [address] [place] [phone] Get Directions; [facility] [address] [place] [address]). Warnings: Further evaluation is necessary in order to conduct further tests. It is very important to follow up with a physician. GENERAL WARNINGS: Return or contact your physician immediately if your condition worsens or changes unexpectedly, if not improving as expected, or if other problems arise. Your Current Medications: CONTINUE TAKING THE FOLLOWING MEDICATIONS: AmLODIPine Besylate Oral. INCRUSE INHALER*. Losartan Potassium Oral. Metoprolol Tartrate Oral : 200mg day. Follow-up: Follow up with a art critic Dr. Brown in seven days. Call for the next available appointment. Understanding of the discharge instructions verbalized by patient. Follow-up with: [facility], , , [address], , [place] [phone] Follow up in seven days. Call for an appointment. ADDITIONAL INFORMATION Chest Pain, Uncertain Cause Chest pain can happen for a number of reasons. Sometimes the cause can not be determined. If yourcondition does not seem serious, and your pain does not appear to be coming from your heart, your doctor may recommend watching it closely. Sometimes the signs of a serious problem take more time to appear. Therefore, watch for the warning signs listed below. Home care After your visit, follow these recommendations: Rest today and avoid strenuous activity. Take any prescribed medicine as directed. Follow-up care Follow up with your doctor or this facility as instructed or if you do not start to feel better within 24 hours. Call 911 Get immediate medical attention if any of the following occur: A change in the type of pain: if it feels different, becomes more severe, lasts longer, or begins to spread into your shoulder, arm, neck, jaw or back Shortness of breath or increased pain with breathing Weakness, dizziness, or fainting Rapid heart beat Get prompt medical attention Call your doctor right away if any of the following occur: Cough with dark colored sputum (phlegm) or blood Fever of 100.4F(38C) or higher, or as directed by your health care provider Swelling, pain or redness in one leg You have been given the following additional information: Chest Pain, Uncertain Cause No strenuous activity. Rest. (Electronically signed by Fritz Kiran MD 08/23/2016 9:02)
--- NOTE | 2016-08-23 09:02 | ED MAR SUMMARY ---
..... Medication Administration Record [facility] [address] [place] [address] Patient: MARIE ERICKSON Visit ID: [id number] 36y, M Weight: 129.2 kg Height/Length: 71 in BMI: 39.7 ALLERGIES: Penicillins, Steriods Given 16:25 08/22/2016 Sarah Baig R.N. Medication Administered: ASPIRIN [PO], Dose: 324 mg Tablets PO. Medication Ordered: Aspirin PO 325 mg (NOW).
--- NOTE | 2016-08-23 09:02 | ED DISCHARGE INSTRUCTIONS ---
Patient: MARIE ERICKSON JR General Instructions [facility] VisitID: [id number] [address], [place] [address] 36y, M Registration Date/Time: 08/22/2016 Atypical chest pain INSTRUCTIONS No strenuous activity. Rest. Avoid stimulants (such as cigarettes, coffee, cold medicines, sinus medicines, street drugs). (we have arranged an appointment for you to have a nuclear stress test performed on Thursday. This is to be done at 9:45 AM on 25 August 2016. This is to be done at [place] at the [facility] Their contact information is as follows: [facility] [address] [place] [phone] Get Directions; [facility] [address] [place] [address]). Warnings: Further evaluation is necessary in order to conduct further tests. It is very important to follow up with a physician. GENERAL WARNINGS: Return or contact your physician immediately if your condition worsens or changes unexpectedly, if not improving as expected, or if other problems arise. Your Current Medications: CONTINUE TAKING THE FOLLOWING MEDICATIONS: AmLODIPine Besylate Oral. INCRUSE INHALER*. Losartan Potassium Oral. Metoprolol Tartrate Oral : 200mg day. Follow-up: Follow up with a mechanical oxidizer Dr. Brown in seven days. Call for the next available appointment. Understanding of the discharge instructions verbalized by patient. Follow-up with: [facility], , , [address], , [place] [phone] Follow up in seven days. Call for an appointment. ADDITIONAL INFORMATION Chest Pain, Uncertain Cause Chest pain can happen for a number of reasons. Sometimes the cause can not be determined. If yourcondition does not seem serious, and your pain does not appear to be coming from your heart, your doctor may recommend watching it closely. Sometimes the signs of a serious problem take more time to appear. Therefore, watch for the warning signs listed below. Home care After your visit, follow these recommendations: Rest today and avoid strenuous activity. Take any prescribed medicine as directed. Follow-up care Follow up with your doctor or this facility as instructed or if you do not start to feel better within 24 hours. Call 911 Get immediate medical attention if any of the following occur: A change in the type of pain: if it feels different, becomes more severe, lasts longer, or begins to spread into your shoulder, arm, neck, jaw or back Shortness of breath or increased pain with breathing Weakness, dizziness, or fainting Rapid heart beat Get prompt medical attention Call your doctor right away if any of the following occur: Cough with dark colored sputum (phlegm) or blood Fever of 100.4F(38C) or higher, or as directed by your health care provider Swelling, pain or redness in one leg You have been given the following additional information: Chest Pain, Uncertain Cause No strenuous activity. Rest. (Electronically signed by Fritz Kiran MD 08/23/2016 9:02)
--- NOTE | 2016-08-23 09:02 | ED MED RECONCILIATION SUMMARY ---
Patient: DRE MARIE Medication Reconciliation Report [facility] VisitID: [id number] [address] [place] [address] 36y, M Registration Date/Time: 08/22/2016 Weight: 129.2 kg Height/Length: 71 in. BMI: 39.7 ALLERGIES: Penicillins, Steriods The patient's Home Medications are listed below: CONTINUE TAKING THE FOLLOWING MEDICATIONS: AmLODIPine Besylate Oral INCRUSE INHALER Losartan Potassium Oral Metoprolol Tartrate Oral 200mg, day The source(s) of the original Home Medication information: Not obtained. The following Medications were given to the patient in the Emergency Department: Aspirin [PO] PO 324 mg, administered: 08/22/2016 4:25:00 PM The following Medications were prescribed to the patient: None.
--- NOTE | 2016-08-23 09:02 | ED MAR SUMMARY ---
..... Medication Administration Record [facility] [address] [place] [address] Patient: MARIE ERICKSON Visit ID: [id number] 36y, M Weight: 129.2 kg Height/Length: 71 in BMI: 39.7 ALLERGIES: Penicillins, Steriods Given 16:25 08/22/2016 Sarah Baig R.N. Medication Administered: ASPIRIN [PO], Dose: 324 mg Tablets PO. Medication Ordered: Aspirin PO 325 mg (NOW).
--- NOTE | 2016-08-23 09:02 | ED MED RECONCILIATION SUMMARY ---
Patient: DRE MARIE Medication Reconciliation Report [facility] VisitID: [id number] [address] [place] [address] 36y, M Registration Date/Time: 08/22/2016 Weight: 129.2 kg Height/Length: 71 in. BMI: 39.7 ALLERGIES: Penicillins, Steriods The patient's Home Medications are listed below: CONTINUE TAKING THE FOLLOWING MEDICATIONS: AmLODIPine Besylate Oral INCRUSE INHALER Losartan Potassium Oral Metoprolol Tartrate Oral 200mg, day The source(s) of the original Home Medication information: Not obtained. The following Medications were given to the patient in the Emergency Department: Aspirin [PO] PO 324 mg, administered: 08/22/2016 4:25:00 PM The following Medications were prescribed to the patient: None.
== END 2016-08-22 19:08 | disposition home or self-care (01) ==
LOC: ED SRH 16:05
DX: R07.89 Other chest pain (principal); J45.909 Unspecified asthma, uncomplicated; J44.9 Chronic obstructive pulmonary disease, unspecified; K21.9 Gastro-esophageal reflux disease without esophagitis; I10 Essential (primary) hypertension; E11.9 Type 2 diabetes mellitus without complications; E78.00 Pure hypercholesterolemia, unspecified; Z88.0 Allergy status to penicillin; Z79.899 Other long term (current) drug therapy; F17.210 Nicotine dependence, cigarettes, uncomplicated
CPT/HCPCS: 90004; 90100; 90616; 91320; 91556; 92235; 92530; 92610; 94001; 94060; 95059